=== PATIENT | female | born 1940 | race Caucasian/White ===

== ENCOUNTER 2019-03-22 05:50 | Inpatient (IN) | payer OTHER ==
[~2019-03-22] VITALS: Ht 160 cm; Wt 78.0 kg
[2019-03-22 08:00] VITALS: BP 122/99
--- NOTE | 2019-03-22 11:30 | NUR ---
ADMITTED FROM [facility] VIA GURNEY ACCOMPANIED BY 2 STAFF. SHE IS A WHITE, 79 YEAR OLD FEMALE, ADMITTED AFTER BEING FOUND UNRESPONSIVE AT HOME AFTER A DRUG OVERDOSE (DRUGS: TYLENOL, OXYCONTIN AND MORPHINE). DR. MACK NOTIFIED AND SPOKE WITH PT. PT. HAS A FLAT AFFECT, AND APPEARS DEPRESSED. SHE HAS NO KNOWN DRUG ALLERGIES. SHE SIGNED HERSELF IN. SHE LIVES WITH A SISTER HER IN . HER ABOUT 1 YEAR AGO AND ON THE HER WEDD[place] ANNIVERSARY SHE OD'D ON THE MEDICATIONS, WAS FOUND UNRESPONSIVE AND TAKEN TO [facility] WHERE SHE HAS BEEN THE PAST 2 DAYS. SHE IS NOT DIABETIC AND IS ON A GENERAL DIET, SHE IS ALERT AND ORIENTED TIMES 4. HOSPITALIST HAS BEEN NOTIFIED.
[2019-03-22] MEDS ORDERED: REQUIP 0.25 M0.25 MG PO (12:11)
[2019-03-22] MEDS ORDERED: WELLBUTRIN 75 M75 M1 PO ×2 (12:15→12:31)
[2019-03-22] MEDS ORDERED: PERIDEX 0.12%473 M1 TOP (12:19)
[2019-03-22] MEDS ORDERED: ACETAMINOPHEN325 MG PO (12:21)
[2019-03-22] MEDS ORDERED: ONDANSETRON HCL4 M2 PO (12:28)
[2019-03-22 20:13] VITALS: BP 150/80
--- NOTE | 2019-03-22 20:48 | NUR ---
Pt in day room watching tv. Compliant with hs snack and medication. Good eye contact, interacting with staff appropriate tone but blunted affect. Pt resting on couch, she is waiting to watch her daughters show the fix on abc.
--- NOTE | 2019-03-22 20:51 | NUR ---
Pt provided hat in toilet to collect stool sample r/t reported loose stools.
--- NOTE | 2019-03-23 01:20 | NUR ---
Pt awakened with h/a and provided prn medication.
--- NOTE | 2019-03-23 02:05 | NUR ---
Pt denies having any loose stools at this time.
--- NOTE | 2019-03-23 03:05 | NUR ---
Pt was sleeping on couch in day room, she was awakened due to male peer slamming door, yelling, security visit. Pt stated she would like to have a sleeping pill and would talk with in am.
--- NOTE | 2019-03-23 05:52 | NUR ---
Stool specimen collected, stool was soft formed and brown, no odor.
[2019-03-23 07:51] VITALS: BP 149/86
[2019-03-23 09:04] LABS: ABSOLUTE NEUTROPHILS 7.1 thou/uL (1.4-8.2); BASOPHILS 0.8 % (0.0-2.0); EOSINOPHILS 4.4 % (0.0-3.0); HEMATOCRIT 35.4 % (37.0-47.0); HEMOGLOBIN 11.9 gm/dL (12.0-15.0); LYMPHOCYTES 15.7 % (24.0-44.0); MCH 28.8 pg (26.0-34.0); MCHC 33.5 g/dL (28.0-37.0); MCV 85.9 fL (80.0-100.0); PLATELET COUNT 396 thou/uL (150-400); POLYS 73.1 % (36.0-66.0); RBC 4.12 mil/uL (4.20-5.00); RDW 14.5 % (10.5-14.5); WBC 9.7 thou/uL (4.0-11.0)
--- NOTE | 2019-03-23 09:09 | NUR ---
[id number]: Report from [facility] shift, care assumed. Ambulates in halls and to DR independently, gait steady. Feeds self meals, takes meds whole w/o difficulty. Reports mid back pain and requested Tylenol, 650mg po given. Denies suicidal ideas or plans when asked, initial assessment completed. VS stable. Attends groups with full participation, cooperative with staff.
--- NOTE | 2019-03-23 10:48 | NUR ---
PSYCHOSOCIAL ASSESSMENT Diagnosis: MAJOR DEPRESSIVE DISORDER, SUICIDAL IDEATION Admit Date: 03/22/19 Psychiatrist: MARTINA Symptoms associated with current admission: Depressed mood Suicidal ideation/attempt Presenting problems: Pt stated that she had so much stuff going on. Pt stated that she loss her , and loss her house. Pt stated that she was out of her comfort zone, and she loss hope. Pt stated that she think life was worth living. Precipitating Factors: Non-compliance psychothx Non-compliance medication Comments: Pt stated that she has taken anti-depressant. Pt stated that help somewhat but life hurts. History of High Risk Behavors: Hx of self harm Suicide Risk Factors: B A-Signs of alcohol/substance abuse w/ suicide ideation B-Recent suicidal thoughts or attempts C-Recent thoughts or attempts of harming someone else D-Altered mental status due to psychiatric/chem dep etiology E-The behavior exists - add comment PSYCHIATRIC HISTORY Age of onset: 79 Prior hospitalizations: Denies hx hospitalization Hospital names and dates, if available: None Most Recent Outpatient HX: Counselor/Case Management Additional information: Legal Status: Voluntary Guardian/Conservatorship type: DPOA Contact name: Yanci Andrade Contact phone: Other: Name: Phone: Other legal issues: (Arrests/convictions Current Status) None P.O. Name and Phone #: FAMILY HISTORY Place of : [place], [place] Raised in: [facility] # Siblings & order: Pt has 3 sibiling, pt 2nd child Describe relationships within family of origin: Pt stated that she has close relationship with her sibilings. Pt stated that her family is involved with her care. Any psychiatric or substance abuse problems within family of origin: Y Has patient been sexually or physically abused, neglected or been taken advantage of financially? N Has the abuse been reported? N Other pertinent family information: Marital history/significant relationships: Domestic violence: N Children ages & who is caring for them: Pt has three adult children Is child welfare involved? N Drug history: None Alcohol Use: Frequency: Quantity: Have you ever felt you ought to Cut down on drinking? Have people Annoyed you by criticizing your drinking? Have you ever felt bad or Guilty about your drinking? Have you ever had a drink first thing in the morning to steady your nerves/get rid of a hangover(Eye senior network engineer) CAGE TOTAL 0 If CAGE score is 3 or more, notify provider for withdrawal orders! AXIS SCREENING TOOL [place] I Mood Disorders: Depression [place] II Personality/Mental Retardation: [place] III Medical Impairment: HTN Arthritis [place] IV Problem(s) with: Economic/Financial Issues Other psych/environ prob [place] V: 50-Serious w/impairment Additional [place] comments: PERSONAL BACKGROUND Relevant cultural issues (ethnicity, values, beliefs, spiritual): Spiritual Gnosticism: Mandaeism Rastafarian Importance of cheondoism to patient: High What hobbies/interests does the patient have? Read [employer] Volunteering at her [employer] Sexual orientation (relevant impact to current treatment): Heterosexual : Where did you serve: Branch of service: Rank: Discharge status: Are you a combat ? Occupational/Work: Do you work? N Do you want to work? N How many hours do you work/week? 0 How many jobs have you had in the past 5 years? 0 Do you need assistance finding a job? N Does the patient need assistance in job training? N Source of income: SSI Does patient have a Payee? N Payee name: Approximate monthly income: 1050 Does patient have adequate funds for next 30 days? Y Education background: Associate degree Highest grade completed: 12th grade Other Educational/training programs: Functional deficits: Yes, see explain Explain functional deficits: SOME MEMORY LOSS Current living situation: House/apartment Address/phone where pt. is living: Pt is living with her sister Aruna Does the patient plan to continue there after DC? Yes Patient lives with: Sibling Will family/significant other be involved in treatment? Other community support services utilized: Pt will need outpatient services for therapy Support System Available (family/friend) Name: Phone: Relationship: Name: Phone: Relationship: Name: Phone: Relationship: Patient strengths: Family support Motivated Insight Patient's assets: Good self care Verbal Positive support system Patient's weaknesses: Chronic hx mental illness Financial support Additional weaknesses: Pt stated that losing her , and her home has caused her to become depressed. Pt stated that she knows it is not good but she needs to start living again. Patient's perception of current social sciences chair/case management needs: Pt stated that a SS is someone who is helpful, and listen to pt problens, and advocate when they need the support. PRELIMINARY DISCHARGE PLAN Discharge plan/Community resource contacts: Pt will be discharge home with her sister, and referred to outpatient services. Discharge needs: Php program Problems anticipated on discharge: Compliance w/ med regimen Comments: (factors affecting DC plan/pt. response/interventions) Pt will be discharge home, and recieve therapy services through [facility].
--- NOTE | 2019-03-23 14:48 | NUR ---
SW spoke with pt daughter Yanci, and sister Aruna to schedule an phone conference with Dr. Alfred and the SW. SW schedule the phone conference on March 24, 2019. SW will follow-up with pt upon discharge.
[2019-03-23 20:06] VITALS: BP 157/76
--- NOTE | 2019-03-23 21:11 | NUR ---
Pt in dining room pacing, she reported lower back pain not being relieved by tylenol. on unit and ordered nsaid prn. Pt stated she could not lay down in bed due to male peer yelling and whistling. Pt reassured that pts behavior would be addressed. Pt did distract herself my getting clothes ready for the am and towels. Pt now in day room watching tv with peer, sitting down, relaxed. Good eye contact with converstation, blunted affect.
--- NOTE | 2019-03-23 21:14 | NUR ---
Pt reported back pain releif from nsaid and returning to room to [facility].
--- NOTE | 2019-03-24 00:10 | NUR ---
Pt reported ankle pain from ambualing without her shoes on, prn tylenol requested and provided. Pt then returned to bed.
--- NOTE | 2019-03-24 03:44 | NUR ---
Pt awake off and on this shift, pt stated not being able to sleep. Will pass on pt request for sleep aide during report.
--- NOTE | 2019-03-24 05:52 | NUR ---
Pt denies any complaints of pain. Asked if an increase in her requip would be considered, that it may help her sleep, if a sleeping pill is not an option. Will pass on in report for nurses to share with dr during rounding.
--- NOTE | 2019-03-24 07:57 | H ---
[facility] [place] [address] [place] [address] HISTORY AND PHYSICAL Name: LIZ MCFADDEN Room #: 526B-B ADM IN M.R.#: [id number] Admission: 03/22/19 ������������������ Attend Phys: Abiel Alfred DO Discharge: ������������������ Date of : 38 Report #: [id number] THIS REPORT FOR: //name// CC: Abiel Alfred [facility] unknown DATE OF SERVICE: 03/22/2019 INPATIENT PSYCHIATRIC EVALUATION ATTENDING PHYSICIAN: Abiel Alfred DO. POULTRY HUSBANDMAN: Mars Alcaraz MD. REASON FOR ADMISSION: Another hospital transfer from [facility] status post intentional polydrug suicide attempt resulting in hypoxic respiratory failure and coffee-ground emesis. SOURCE OF INFORMATION: Interview with the patient, records from [facility]. HISTORY OF PRESENT ILLNESS: This is an 79-year-old female from records from [facility] on 03/17/2019, the nurse spoke with the patient regarding the happenings and how she became unresponsive over the weekend. She said that on 03/14/2019 in the evening, she took some pills. When asked if there were scheduled pills, she said no. When asked if she took these pills in an attempt to commit suicide, she said yes. When asked if she is still having thoughts of suicide or if she wants to harm self, she said "it is not that I want to hurt myself, I just want to end it all." From [facility], an 79-year-old female found by her sister going away for the weekend when she went to go check on her, the patient was living in her basement since her . a year ago. She lives with her sister since August. Sister got around the home around 4:00 p.m. on the day of admission 03/15/2019, found the patient unresponsive, lying on the bed ____ she noticed coffee-ground emesis all around her at that time. Her sister states that she has never witnessed any alcohol, tobacco or illegal drug use noted. The patient was brought intubated. Most of the information was obtained from the chart. This is at [facility]. Apparently, she had taken some ibuprofen or Aleve. She did report that she was having some epigastric pain and had been having that as well. She noted dark stool. On admission, her hemoglobin was 14, white count 23,000. The patient was placed on a ventilator. MEDICATIONS FROM HOME: Requip, Ultram. PAST MEDICAL HISTORY: Noted and significant. PAST SURGICAL HISTORY: Cholecystectomy. [facility] [address] [place] [address] HISTORY AND PHYSICAL Name: LIZ MCFADDEN Room #: 526B-B ADM IN .R.#: [id number] Admission: 03/22/19 ������������������ Attend Phys: Abiel Alfred DO Discharge: ������������������ Date of : 38 Report #: [id number] FAMILY HISTORY: Denied. SOCIAL HISTORY: The patient's a year ago. She worked for 30 years for [employer], had lived in the [place] area about 17 or 19 years. 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 Today, the patient denies SI, HI, auditory, visual, or tactile hallucinations. REVIEW OF SYSTEMS: Ten-point review of systems was done, no significant positives or negatives. LABORATORY DATA: From [facility] on admission, hemoglobin 14, went down to 10.6; white count was 23, reduced to 17.6; platelets 258. GFR is 34.9. PT is 10. INR is 1. Total bilirubin 0.6, alkaline phosphatase 89, ALT 56, ALT 69. The patient did have positive nitrites. CT of the abdomen and pelvis showed small hiatal hernia, mild diverticulosis and a splenic vascular aneurysm and an umbilical hernia. CT of the head was negative. She was diagnosed with hematemesis, epigastric pain, NSAID use, anemia, urinary tract infection, leukocytosis, aspiration pneumonia, chronic kidney disease. EGD was done at the bedside, have a preliminary report from that, which showed some esophagitis. Other laboratories done 03/21/2019, sodium 136, potassium 3.3, chloride 100, bicarbonate 26, anion gap of 13, BUN 13, creatinine 0.8. ADDITIONAL FAMILY HISTORY: The patient's mother at 86. She has COPD. The patient's father at 47. He had type 1 diabetes mellitus, myocardial infarction. The patient has 2 siblings and family history of diabetes, CO, coronary artery disease, cardiac stents, hypercholesterolemia. The patient has 3 children with no medical problems. Denied tobacco, alcohol or illicit drug use. IMAGING: Head CT showed no acute intracranial hemorrhage. The patient had a chest x-ray, which showed no acute cardiopulmonary process. A 12-lead EKG was done, which demonstrated sinus tachycardia with premature atrial contractions, heart rate 106, QTC 462, some rate dependent ST depressions in the lateral inferior leads, no STEMI. ADDITIONAL LABORATORIES: TSH third generation 0.39, which is slightly low, free T3 was 1.2, B12 was 809, folate 15.2. It should be noted that EGD findings were grade D reflux esophagitis, mild antral erosive gastritis with orogastric trauma causing erosions in the mid and distal body of the stomach. No ulcers were noted and no blood is noted. Wellbutrin was started apparently 75 mg twice a day, I will change that to Wellbutrin-XL ____ daily. [facility] [address] [place] [address] HISTORY AND PHYSICAL Name: LIZ MCFADDEN Room #: 526B-B ADM IN M.R.#: [id number] Admission: 03/22/19 ������������������ Attend Phys: Abiel Alfred, Discharge: ������������������ Date of : 38 Report #: [id number] I do not have a psychiatric report, but inpatient psychiatric hospitalization was recommended. PHYSICAL EXAMINATION: VITAL SIGNS: Today as follows, temperature 37.3, pulse 96, BP 122/99, O2 sat 96%. GENERAL: This is a well-developed, disheveled female appearing stated at least age. MENTAL STATUS EXAMINATION: Attention limited. Concentration limited and her SLUMS score is 22/30 with a score of 0 on reverse digit span. Thought process is linear and goal directed. Mood and affect are congruent and constricted. Denies SI, HI. Denies hopelessness and helplessness. Denied homicidal intent or plan. Memory was formally tested, is 4/5 for delayed recall. Insight limited. Judgment limited. Fund of knowledge, no greater than average. FORMULATION: An 79-year-old female admitted via another hospital transfer for an intentional suicide attempt. PLAN: Regarding the patient's Psych meds, switch her to Wellbutrin in XL form 150 mg daily, continue Protonix 20 mg daily, Requip 0.25 mg daily, trazodone, I added 50 mg at bedtime p.r.n. Let see how she does over the next few days as this appears to be an adjustment reaction on top of chronic depression. DIAGNOSES: Major depressive disorder, single episode, severe degree, complicated grief, delirium due to polydrug overdose, greatly improved. PLAN: As above. ESTIMATED LENGTH OF STAY: 5-7 days. Time spent on interview, review of records, coordination of care with the patient is at least 90 minutes. STRENGTHS: She is insured. WEAKNESSES: Limited support, has family in [place]. ��������������������������������������������� <ELECTRONICALLY SIGNED> ���������������������������������������� By: Abiel Alfred DO ��������������������������������������������� 03/24/19 [id number] Abiel Alfred DO /nt
[2019-03-24 08:19] VITALS: BP 177/81
--- NOTE | 2019-03-24 12:37 | NUR ---
ASSUMED PATIENT CARE AT 0700. PATIENT UP IN DR AT THAT TIME. ATE BREAKFAST, UNOBSERVED AMOUNT. CALM MOOD, NO S/I OR H/I VERBALIZED, NUETRAL AFFECT. STATED HAVING A BACK PAIN, ALSO TOLD THIS NURSE THAT SHE WAS HAVING A LEG CRAMP. ADMINISTERED IBOPROVEN BY OTHER NURSE, P.C.
[2019-03-24] MEDS ORDERED: WELLBUTRIN XL150 MG PO (12:49)
[2019-03-24] MEDS ORDERED: TRAZODONE HCL50 MG PO (12:49)
[2019-03-24] MEDS ORDERED: REQUIP 0.25 M0.25 MG PO (12:50)
[2019-03-24 15:44] VITALS: BP 177/81
--- NOTE | 2019-03-24 15:46 | NUR ---
Patient Name: LIZ MCFADDEN Admission Date: 03/22/19 DISCHARGE PLAN: Pt will be discharge to the homes of her sister. [address] [facility] [address] Care Assessment: Pt was assessed by Dr. Alfred, and diagnosed with Major Depression Disorder. Level II Assessment: None Transportation: Pt will be transported by the [facility]. Special Instructions/Notes: Pt will need to be seen an outpatient sercice through [facility] on March 31, 2019 at 11:00am. Pt will need an grievenace support group. Pt stated that she has an grievance group with her zoroastrianism. Pt stated that she will attend. DISCHARGE TO FACILITY: Facility: Phone: Fax: Address: Contact Name: Phone: PCP: MONSE Psychiatrist: [facility]
--- NOTE | 2019-03-24 16:27 | NUR ---
PATIENT DISCHARGED AT 3:30, VIA CAB, TO [address] [place] [address], [facility] [place] TO HER SISTER, [facility]. ALL BELONGINGS SENT WITH PATIENT.
--- NOTE | 2019-03-24 17:39 | NUR ---
HAMMAD left a voicemail for pt sister Aruna concerning the phone conference. HAMMAD asked if the phone conference can be moved to 11:45am. HAMMAD provided contact information to return phone call. HAMMAD will follow-up with the daughter per phone call. HAMMAD attempted to reach pt sister Orion at Noon to speak with her concerning pt discharge. HAMMAD left a voicemail. HAMMAD provided contact information to return call. HAMMAD will follow-up with pt upon discharge.
--- NOTE | 2019-03-25 16:47 | D ---
[facility] [place] [address] [place] [address] DISCHARGE SUMMARY Name: LIZ MCFADDEN Room #: 526B-B DIS IN M.R.#: [id number] Admission: 03/22/19 ������������������ Attend Phys: Abiel Alfred DO Discharge: 03/24/19 ������������������ Date of : 38 Report #: [id number] THIS REPORT FOR: //name// CC: Abiel Alfred [facility] unknown DATE OF SERVICE: 03/24/2019 INPATIENT PSYCHIATRIC DISCHARGE SUMMARY ATTENDING PHYSICIAN: Abiel Alfred DO WOOLING MACHINE OPERATOR AT THE TIME OF DISCHARGE: Mars Alcaraz MD DISCHARGE DIAGNOSES: Are as follows: Major depressive disorder, single episode, severe degree, improved. Complicated grief and bereavement. DISCHARGE PLAN: She is discharged to her home where she lives with her sister. Aftercare is as follows: She will have an appointment at [facility] on 03/31/2019 at 11:00 a.m. Her sister's address is [address] [place] [id number]. Recommended that the patient attend grief group at her [facility] at least once a month. PHP had been recommended for this patient, but she declined, social insurance specialist confirmed that. Vitamins and pills including those she overdosed on had been removed. DIET: Regular. ACTIVITY LEVEL: As tolerated. No alcohol, no illicit drugs. REASON FOR ADMISSION: The patient was transferred from [facility] after intentional suicide attempt, polydrug requiring mechanical ventilation. HOSPITAL COURSE: The patient was admitted to the Geriatric Psychiatry Unit. The patient warmed up to the environment rapidly, participated in groups. Did not voice suicidal or homicidal ideation. No physical or chemical restraints were required. At the day of discharge, the patient was found to be in stable condition. LABORATORY DATA: This admission, CBC: H and H 11.9 and 35.4, white count 9.7, platelets 396, done on 03/23/2019. Serology, C. difficile toxin was negative. The first day, she had some diarrhea. DISCHARGE MEDICATIONS: Are as follows: Bupropion XL 150 mg p.o. daily, 30-day prescription was given; trazodone 50 mg p.o. for sleep, Rx given #15, Requip 0.25 mg p.o. given for restless legs syndrome that was started at [facility]. [address] [address] DISCHARGE SUMMARY Name: LIZ MCFADDEN Room #: 526B-B [facility] IN M.R.#: [id number] Admission: 03/22/19 ������������������ Attend Phys: Abiel Alfred DO Discharge: 03/24/19 ������������������ Date of : 39 Report #: [id number] She can continue Protonix 40 mg p.o. daily for GERD. The patient should also follow up with primary care physician in 1 month. PHYSICAL EXAMINATION: VITAL SIGNS: At the time of discharge are as follows: Temperature 36.2, pulse 95, BP 177/81, respirations 20, last evening BP was 157/76. MUSCULOSKELETAL: Normal gait and station. MENTAL STATUS EXAMINATION: This is a well-developed, well-nourished female, appearing stated age. Attention intact. Concentration intact. Speech is normal rate, normal tone. Thought process is linear and goal directed. Thought content focused on discharge, ameliorating herself. She was future oriented. No psychomotor agitation. No psychomotor retardation. Denied auditory, visual or tactile hallucinations. Denied suicidal intent or plan. Denied hopelessness or helplessness. Denied homicidal intent or plan. Mood and affect congruent, euthymic, fair range. Insight fair. Judgment fair. Fund of knowledge not greater than average. Prognosis for this patient is fair if she maintains [facility] followup including psychotherapy and attends grief support group. ��������������������������������������������� <ELECTRONICALLY SIGNED> ���������������������������������������� By: Abiel Alfred DO ��������������������������������������������� 03/25/19 [id number] Abiel Alfred DO /nt
== END 2019-03-24 16:48 | disposition home or self-care (01) | DRG 885 ==
LOC: SBH
PROVIDERS: ADMIT Psychiatry & Neurology Psychiatry
DX: F32.2 Major depressive disorder, single episode, severe without psychotic features (principal); J44.9 Chronic obstructive pulmonary disease, unspecified; E10.9 Type 1 diabetes mellitus without complications; I25.10 Atherosclerotic heart disease of native coronary artery without angina pectoris; E78.00 Pure hypercholesterolemia, unspecified; R41.0 Disorientation, unspecified; K21.9 Gastro-esophageal reflux disease without esophagitis; G25.81 Restless legs syndrome; F43.21 Adjustment disorder with depressed mood; Z79.899 Other long term (current) drug therapy; Z90.49 Acquired absence of other specified parts of digestive tract; I25.2 Old myocardial infarction; Z95.5 Presence of coronary angioplasty implant and graft
CPT/HCPCS: 10880